=== PATIENT | male | born 1960 | race African-American/Black ===

== ENCOUNTER 2018-09-27 22:04 | Emergency (ER) | payer MEDICARE ==
[~2018-09-27] VITALS: Ht 167.6 cm; Wt 64.0 kg
[2018-09-28] MEDS ORDERED: SODIUM CHLORIDE 0.9% 1,000 ML IV ONE (00:49)
[2018-09-28] MEDS ORDERED: ONDANSETRON HCL 4MG/2ML INJ IV STA (00:49)
[2018-09-28] MEDS ORDERED: MAGNESIUM/ALUMINUM HYDROXIDE/SIMETHICONE 30ML UDC PO STA (01:02)
[2018-09-28 01:06] LABS: BASOPHILS % 0.6 % (0.0-2.0); EOSINOPHILS % 1.6 % (0.0-5.0); HEMATOCRIT. 45.7 % (42.0-52.0); HEMOGLOBIN. 15.7 g/dL (14.0-18.0); LYMPHOCYTES % 23.4 % (20.0-50.0); MEAN CORPUSCULAR HEMOGLOBIN 29.1 pg (28.0-32.0); MEAN CORPUSCULAR VOLUME 84.4 fL (80.0-94.0); MEAN PLATELET VOLUME 7.9 fl (7.4-10.4); MONOCYTES % 7.5 % (2.0-8.0); NEUTROPHILS % 66.9 % (40.0-76.0); PLATELET 282 x1000/uL (130-400); RED BLOOD CELL COUNT 5.42 mill/uL (4.7-6.1); RED CELL DISTRIBUTION WIDTH 14.5 % (11.6-14.6)
[2018-09-28 01:12] LABS: CHLORIDE 105 mEq/L (98-107)
[2018-09-28 01:15] LABS: PROTHROMBIN TIME 10.5 sec (9.6-11.0)
[2018-09-28] MEDS ORDERED: MORPHINE SULFATE 4 MG/ML CPJ (NOT FOR IM USE) IV ONE (01:15)
[2018-09-28] MEDS ORDERED: FAMOTIDINE 20MG/2ML VIAL IV ONE (01:15)
[2018-09-28 01:24] LABS: CLARITY URINE CLEAR (CLEAR); COLOR URINE YELLOW (YELLOW); KETONES URINE NEGATIVE (NEGATIVE); LEUKOCYTE ESTERASE URINE NEGATIVE (NEGATIVE); NITRITE URINE NEGATIVE (NEGATIVE); OCCULT BLOOD URINE NEGATIVE (NEGATIVE); PH URINE 5.5 (4.5-8.0); PROTEIN URINE NEGATIVE (NEGATIVE); SPECIFIC GRAVITY URINE 1.023 (1.005-1.030)
[2018-09-28 03:16] VITALS: BP 130/79
== END 2018-09-28 03:20 | disposition home or self-care (01) ==
LOC: ER 22:04
DX: R10.9 Unspecified abdominal pain (principal); R11.0 Nausea
CPT/HCPCS: 36415; 80053; 81003; 83690; 85025; 85610; 96374; 96375; 99283; J2270; J2405; J3490; J7030

== ENCOUNTER 2024-06-12 07:59 | Emergency (ER) | payer MEDICARE, MEDICAID ==
[~2024-06-12] VITALS: Ht 170.2 cm; Wt 114.0 kg
[2024-06-12 08:09] VITALS: O2SAT 100
[2024-06-12] MEDS ORDERED: MAGNESIUM/ALUMINUM HYDROXIDE/SIMETHICONE 30ML UDC PO STA (08:26)
[2024-06-12] MEDS ORDERED: DICYCLOMINE 10 MG/5 ML ORAL SYR PO STA (08:26)
[2024-06-12] MEDS ORDERED: FAMOTIDINE 20MG TABLET PO ONE (08:30)
[2024-06-12] MEDS ORDERED: FAMO-135 MT (08:32)
[2024-06-12 09:01] VITALS: BP 136/99; PULSE 67; RESP 16; TEMP 37; O2SAT 100
[2024-06-12] MEDS ORDERED: DICYCLOMINE HCL 10MG CAPSULE PO NR (10:00)
== END 2024-06-12 09:02 | disposition home or self-care (01) ==
LOC: ER 08:09
DX: K21.9 Gastro-esophageal reflux disease without esophagitis (principal)
CPT/HCPCS: 99283